=== PATIENT | male | born 1950 | race Caucasian/White ===

== ENCOUNTER 2018-06-13 16:13 | Emergency (ER) | payer MEDICARE, MEDICAID ==
[2018-06-13 16:34] VITALS: BP 118/75
--- NOTE | 2018-06-13 16:47 | UC ---
Ear Complaint HPI - HPI Summary HPI Summary: Pt c/o sudden onset of left ear pain, after "sleeping with my window open and the cold air blowing into my ear". Pt denies URI symptoms, fever, chills, loss of hearing, swelling or discharge. - History of Current Complaint Chief Complaint: UCEar Stated Complaint: EAR PAIN (L) Time Seen by Provider: 06/13/18 16:38 Hx Obtained From: Patient Onset/Duration: Sudden Onset Severity Initially: Mild Severity Currently: Mild Pain Intensity: 2 Aggravating Factors: Cold Alleviating Factors: Other (Noted In Comments) - cotton ball - Allergies/Home Medications Allergies/Adverse Reactions: Allergies Allergy/AdvReac Type Severity Reaction Status Date / Time No Known Allergies Allergy Verified 06/13/18 16:29 Home Medications: Home Medications Lisinopril/HCTZ 20/12.5(NF) [Zestoretic 20/12.5(NF)] 1 tab PO BID 06/13/18 [ History Confirmed 06/13/18] Lovastatin [Altoprev] 40 mg PO DAILY 06/13/18 [History Confirmed 06/13/18] Metoprolol Succinate 100 mg PO BID 06/13/18 [History Confirmed 06/13/18] Phenylephrine HCl [Sinus PE Decongestant] 10 mg PO DAILY 06/13/18 [History Confirmed 06/13/18] PMH/Surg Hx/FS Hx/Imm Hx Previously Healthy: Yes Endocrine History: Dyslipidemia Cardiovascular History: Cardiac Disease, Hypertension - Surgical History Surgical History: None - Family History Known Family History: Positive: Cardiac Disease - Social History Occupation: Retired Lives: With Family Alcohol Use: Occasionally Substance Use Type: None Smoking Status (MU): Never Smoked Tobacco Have You Smoked in the Last Year: No Review of Systems Constitutional: Negative Skin: Negative Eyes: Negative ENT: Ear Ache - left Respiratory: Negative Cardiovascular: Negative Gastrointestinal: Negative Genitourinary: Negative Motor: Negative Neurovascular: Negative Musculoskeletal: Negative Neurological: Negative Psychological: Negative Is Patient Immunocompromised?: No All Other Systems Reviewed And Are Negative: Yes Physical Exam Triage Information Reviewed: Yes Appearance: Well-Appearing Vital Signs: Initial Vital Signs Temp 98.8 F 06/13/18 16:25 Pulse 79 06/13/18 16:25 Resp 15 06/13/18 16:25 BP 118/75 06/13/18 16:25 Pulse Ox 99 06/13/18 16:25 Vital Signs Reviewed: Yes Eye Exam: Normal ENT Exam: Normal ENT: Positive: Other - small amount cerumen in left ear canal Dental Exam: Normal Neck exam: Normal Respiratory Exam: Normal Cardiovascular Exam: Normal Musculoskeletal Exam: Normal Neurological Exam: Normal Psychological Exam: Normal Skin Exam: Normal Ear Complaint Course/Dx - Differential Dx/Diagnosis Differential Diagnosis/HQI/PQRI: Cerumen Impaction, Otitis Media, Perforated TM , URI Provider Diagnoses: left ear ache Discharge - Sign-Out/Discharge Documenting (check all that apply): Patient Departure - Discharge Plan Condition: Stable Disposition: HOME Patient Education Materials: Earache (ED) Referrals: Matilde Barker [Primary Care Provider] - If Needed - Billing Disposition and Condition Condition: STABLE Disposition: Home
== END 2018-06-13 16:59 | disposition home or self-care (01) ==
LOC: UCCORT 16:13
DX: H92.02 Otalgia, left ear (principal); I10 Essential (primary) hypertension; E78.5 Hyperlipidemia, unspecified; Z79.899 Other long term (current) drug therapy
CPT/HCPCS: 99211; G0463